=== PATIENT | male | born 1945 | race Caucasian/White ===

== ENCOUNTER 2025-02-11 16:47 | Observation (INO) | payer OTHER ==
[~2025-02-11] VITALS: Ht 180.3 cm; Wt 88.5 kg
[2025-02-11 17:22] LABS: BASOPHILS ABSOLUTE AUTO 0.06 K/mm3 (0.00-0.23); BASOPHILS PERCENT AUTO 1 % (0-2); EOSINOPHILS ABSOLUTE AUTO 0.09 K/mm3 (0.00-0.68); EOSINOPHILS PERCENT AUTO 2 % (0-6); Hematocrit 41.1 % (37.0-53.0); Hemoglobin 14.0 g/dL (13.5-17.5); IMMATURE GRAN ABSOLUTE AUTO 0.01 K/mm3 (0.00-0.10); IMMATURE GRAN PERCENT AUTO 0 % (0-1); LYMPHOCYTES ABSOLUTE AUTO 1.55 K/mm3 (0.84-5.20); LYMPHOCYTES PERCENT AUTO 27 % (21-46); MONOCYTES ABSOLUTE AUTO 0.51 K/mm3 (0.16-1.47); MONOCYTES PERCENT AUTO 9 % (4-13); Mean Corpuscular HGB Conc 34.1 g/dL (31.5-36.5); Mean Corpuscular Volume 93 fL (80-100); NEUTROPHILS ABSOLUTE AUTO 3.43 K/mm3 (1.96-9.15); NEUTROPHILS PERCENT AUTO 61 % (41-73); NRBC ABSOLUTE 0.00 K/mm3 (0.00-0.02); NRBC Auto 0.0 /100 WBC (0.0-0.2); Platelet Count 274 K/mm3 (150-400); RDW Coefficient Variation 14.0 % (11.7-14.2); RDW Standard Deviation 48.2 fL (35.1-46.3)
[2025-02-11 17:41] LABS: Alanine Aminotransfer (ALT/SGP 57.0 U/L (12-78); Albumin, Blood 3.9 g/dL (3.4-5.0); Albumin/Globulin Ratio 1.6 (0.8-1.8); Anion Gap 9.0 mmol/L (3-11); Aspartate Aminotrans (AST/SGOT 45.0 U/L (12-37); Bilirubin, Total 2.3 mg/dL (0.1-1.0); Blood Urea Nitrogen 20.0 mg/dL (8-24); CO2, Blood 23.0 mmol/L (21-32); Calcium, Blood 8.7 mg/dL (8.5-10.1); Chloride, Blood 109.0 mmol/L (98-108); Creatinine, Blood 1.24 mg/dL (0.60-1.20); Globulin, Blood 2.5 g/dL (2.2-4.0); Glucose, Blood 108.0 mg/dL (70-99); Potassium, Blood 4.2 mmol/L (3.5-5.5); Sodium, Blood 137.0 mmol/L (136-145); Total Protein, Blood 6.4 g/dL (6.4-8.2)
[2025-02-11 18:57] LABS: Prothrombin Time Results 12.4 Sec (9.7-11.5)
[2025-02-11 19:12] LABS: Magnesium, Blood 2.3 mg/dL (1.6-2.4)
[2025-02-11 19:15] LABS: Alanine Aminotransfer (ALT/SGP 55.0 U/L (12-78); Albumin, Blood 3.8 g/dL (3.4-5.0); Albumin/Globulin Ratio 1.5 (0.8-1.8); Anion Gap 7.0 mmol/L (3-11); Aspartate Aminotrans (AST/SGOT 43.0 U/L (12-37); Bilirubin, Total 2.2 mg/dL (0.1-1.0); Blood Urea Nitrogen 18.0 mg/dL (8-24); CO2, Blood 24.0 mmol/L (21-32); Calcium, Blood 8.6 mg/dL (8.5-10.1); Chloride, Blood 109.0 mmol/L (98-108); Creatinine, Blood 1.15 mg/dL (0.60-1.20); Globulin, Blood 2.6 g/dL (2.2-4.0); Glucose, Blood 101.0 mg/dL (70-99); Potassium, Blood 4.3 mmol/L (3.5-5.5); Sodium, Blood 136.0 mmol/L (136-145); Total Protein, Blood 6.4 g/dL (6.4-8.2)
[2025-02-11] MEDS ORDERED: Ondansetron HCl 2 MG / ML 2ML Vial IV PRN (21:45)
[2025-02-11] MEDS ORDERED: FLU VACC TS2025(65UP)/MF59C/PF 45 MCG/0.5 ML SYRINGE IM SCH (21:50)
[2025-02-11 22:14] LABS: Thyroid Stimulating Hormone 2.04 uIU/mL (0.360-4.800)
[2025-02-11 22:54] VITALS: BP 174/114
[2025-02-12 03:38] VITALS: BP 167/96
--- NOTE | 2025-02-12 04:16 | NUR ---
SHIFT SUMMARY 79 YR M ADMITTED TO MEDICAL FLOOR ON 02/11/25. PT HAD NUMBNESS AND TINGLING TO HIS RIGHT HAND AND TONGUE PRIOR TO ADMISSION. HE STATES THAT THE SX HAVE TOTALLY RESOLVED. HE IS A&O X 4 AND INDEPENDANT IN THE ROOM. ADMITTING DX IS NEW ONSET OF CHF. PT DENIES CHEST PAIN OR PRESSURE, BUT REPORTS SOB X A FEW WEEKS FOR WHICH HE IS CURRENTLY BEING DIURESED. HE IS PLEASANT AND COOPERATIVE WITH CARE. BED IS IN LOW POSITION WITH CALL LIGHT IN REACH.
[2025-02-12 05:00] LABS: Hematocrit 42.2 % (37.0-53.0); Hemoglobin 14.3 g/dL (13.5-17.5); Mean Corpuscular HGB Conc 33.9 g/dL (31.5-36.5); Mean Corpuscular Volume 92 fL (80-100); NRBC ABSOLUTE 0.00 K/mm3 (0.00-0.02); NRBC Auto 0.0 /100 WBC (0.0-0.2); Platelet Count 263 K/mm3 (150-400); RDW Coefficient Variation 14.0 % (11.7-14.2); RDW Standard Deviation 47.5 fL (35.1-46.3)
[2025-02-12 05:20] LABS: Anion Gap 9 mmol/L (3-11); Blood Urea Nitrogen 17 mg/dL (8-24); CHOL/HDL RATIO 3.2; CO2, Blood 28 mmol/L (21-32); Calcium, Blood 9.0 mg/dL (8.5-10.1); Chloride, Blood 103 mmol/L (98-108); Cholesterol 185 mg/dL (50-200); Creatinine, Blood 1.12 mg/dL (0.60-1.20); Glucose, Blood 88 mg/dL (70-99); HDL Cholesterol 58 mg/dL (>39); LDL/HDL RATIO 1.9; Low Density Lipoprotein Chol 113 mg/dL (0-110); Magnesium, Blood 2.3 mg/dL (1.6-2.4); Potassium, Blood 3.7 mmol/L (3.5-5.5); Sodium, Blood 136 mmol/L (136-145); Triglycerides 71 mg/dL (30-160); Very Low Density Lipoprot Chol 14 mg/dL (6-32)
[2025-02-12 07:51] VITALS: BP 167/91
[2025-02-12] MEDS ORDERED: Enoxaparin 40 MG/0.4 ML SYR SC SCH (09:00)
[2025-02-12 10:59] VITALS: BP 157/88
[2025-02-12 15:00] VITALS: BP 160/91
--- NOTE | 2025-02-12 15:55 | NUR ---
THIS RN NOTIFIED THAT PT HEART RATE DIPS DOWN INTO THE 40S, NOT SUSTAINING, AND HAS 2ND DEGREE TYPE [address] MAYA NOTIFED. NO NEW ORDERS AT THIS TIME.
--- NOTE | 2025-02-12 19:00 | NUR ---
NO ACUTE CHANGES THIS SHIFT. NO CHEST PAIN OR PRESSURE, PT REPORTS BREATHING IS MUCH IMPROVED WITH DIURESSING. PT HEART RATE DROPPING TO 40S INTERMITTENTLY. PT IS NON SYMPTOMATIC. INDEPENDENT IN THE ROOM, ECHO COMPLETED THIS SHIFT. CALLS APPROPRIATELY. PT REPORTS NO DEFICITS AND NO N/T
[2025-02-12 19:07] VITALS: BP 140/90
[2025-02-12 23:19] VITALS: BP 149/83
[2025-02-13 03:26] VITALS: BP 145/87
--- NOTE | 2025-02-13 04:31 | NUR ---
SHIFT SUMMARY 79 YR M ADMITTED ON 02/11/25. FULL CODE. NO ACUTE CHANGES THIS SHIFT. NO ADVERSE EVENTS REPORTED FROM [facility]. HR HAS STAYED WNL FOR THIS ENTIRE SHIFT. PT HAS HAD NO C/O PAIN OR DISCOMFORT. HE APPEARS TO HAVE RESTED COMFORTABLY THROUGHOUT THE NIGHT. A&O X 4 AND INDEPENDANT IN THE ROOM. NO NEW CHANGES TO REPORT. BED IN LOW POSITION AND CALL LIGHT IN REACH.
[2025-02-13 05:06] LABS: Albumin, Blood 3.7 g/dL (3.4-5.0); Anion Gap 9 mmol/L (3-11); Blood Urea Nitrogen 17 mg/dL (8-24); CO2, Blood 28 mmol/L (21-32); Calcium, Blood 8.6 mg/dL (8.5-10.1); Chloride, Blood 102 mmol/L (98-108); Creatinine, Blood 1.18 mg/dL (0.60-1.20); Glucose, Blood 104 mg/dL (70-99); Magnesium, Blood 2.3 mg/dL (1.6-2.4); Phosphorus, Blood 3.2 mg/dL (2.5-4.9); Potassium, Blood 3.5 mmol/L (3.5-5.5); Sodium, Blood 135 mmol/L (136-145)
[2025-02-13 07:13] VITALS: BP 166/99
--- NOTE | 2025-02-13 10:34 | NUR ---
ROUNDING- ROUNDING WITH [facility]. PT DISCHARGING TO HOME TODAY.
[2025-02-13] MEDS ORDERED: ASPI81CH PO (10:39)
[2025-02-13] MEDS ORDERED: ATOR10 PO (10:40)
[2025-02-13] MEDS ORDERED: FURO40 PO (10:40)
[2025-02-13] MEDS ORDERED: LOSA25 PO (10:41)
--- NOTE | 2025-02-13 12:11 | NUR ---
DISCHARGE- PATIENT IS DISCHARGED TO HOME. DISCHARGE INSTRUCTIONS EXPLAINED AND QUESTIONS ANSWERED. TELE BOX REMOVED BY RN. IV REMOVED BY FUNERAL SERVICE MANAGER. TAKEN DOWN TO PRIVATE VEHICLE BY WHEELCHAIR BY FUNERAL SERVICE MANAGER.
== END 2025-02-13 12:07 | disposition home or self-care (01) ==
LOC: ER 16:47 → MEDS 16:48 → ENPENDDIS 02-13 09:41 → MEDS 02-13 12:07
PROVIDERS: Internal Medicine; Nurse Practitioner Acute Care; Student in an Organized Health Care Education/Training Program; ADMIT Student in an Organized Health Care Education/Training Program
DX: I11.0 Hypertensive heart disease with heart failure (principal); I50.30 Unspecified diastolic (congestive) heart failure; R91.8 Other nonspecific abnormal finding of lung field; E78.5 Hyperlipidemia, unspecified; I65.21 Occlusion and stenosis of right carotid artery; J98.11 Atelectasis; R25.2 Cramp and spasm; I44.1 Atrioventricular block, second degree; I34.0 Nonrheumatic mitral (valve) insufficiency
CPT/HCPCS: 36415; 70450; 70496; 70498; 71046; 71260; 80048; 80053; 80061; 80069; 83036; 83735; 83880; 84443; 84484; 85025; 85027; 85379; 85610; 85730; 93005; 93010; 93306; 96372; 96374; 97161; 97165; 97530; 99285-25; A9270; G0378; J1650; J1938; Q9967